=== PATIENT | male | born 1985 | race Two or more races ===

== ENCOUNTER 2023-12-09 01:02 | Emergency (ER) | payer SELFPAY ==
[~2023-12-09] VITALS: Ht 170.2 cm; Wt 113.6 kg
[2023-12-09 01:47] LABS: BASOPHILS % (AUTO) 0.5 % (0.0-2.0); EOSINOPHILS % (AUTO) 1.1 % (1.0-6.0); HEMATOCRIT 37.2 % (41-53); MEAN CORPUSCULAR HEMOGLOBIN 29.6 pg (26.0-34.0); MEAN CORPUSCULAR VOLUME 85 fL (80-100); MONOCYTES # (AUTO) 0.3 K/uL (0.1-1.0); MONOCYTES % (AUTO) 4.4 % (2.0-9.0); NEUTROPHILS # (AUTO) 5.5 K/uL (1.8-7.7); PLATELET COUNT (AUTO) 228 K/uL (150-450); RED CELL DISTRIBUTION WIDTH 14.2 % (11.5-14.5)
[2023-12-09 02:00] VITALS: BP 189/121; PULSE 84; RESP 18; TEMP 98.3
[2023-12-09 02:00] LABS: ANION GAP 6 mmol/L (8-16); CALCIUM, TOTAL 9.6 mg/dL (8.8-10.5); CARBON DIOXIDE 34 mmol/L (22-29); CHLORIDE 101 mmol/L (98-107); CREATININE 1.06 mg/dL (0.60-1.30); GLOMERULAR FILTR. RATE CALC > 60 mL/min (>60); GLUCOSE,RANDOM 152 mg/dL (70-110); POTASSIUM 3.9 mmol/L (3.5-5.1); SODIUM SERUM 141 mmol/L (136-145); UREA NITROGEN, BLOOD 15 mg/dL (7-18)
[2023-12-09] MEDS: CloNIDine HCL 0.1 MG TABLET PO ONE (02:21)
[2023-12-09] MEDS: AmLODIPine BESYLATE 10 MG TABLET PO ONE (02:21)
== END 2023-12-09 05:42 | disposition home or self-care (01) ==
LOC: EMS 01:04
DX: I10 Essential (primary) hypertension (principal)
CPT/HCPCS: 80048; 82962; 85025; 93005; 99284